=== PATIENT | male | born 1960 | race Caucasian/White ===

== ENCOUNTER 2023-01-10 16:30 | Emergency (ER) | payer BC ==
[2023-01-10] MEDS ORDERED: Ertapenem 1 GM in Sodium Chloride 0.9% 50 ML IV ONE (17:40)
[2023-01-10 18:12] LABS: BASOPHILS PERCENT AUTO 0.3 % (0.3-3.8); EOSINOPHILS ABSOLUTE AUTO 0.3 x10-3/uL (0.0-0.6); EOSINOPHILS PERCENT AUTO 4.3 % (0.1-6.8); HEMATOCRIT 38.2 % (38.3-50.1); LYMPHOCYTES ABSOLUTE AUTO 0.5 x10-3/uL (0.5-4.5); LYMPHOCYTES PERCENT AUTO 6.6 % (15.8-45.3); MEAN CORPUSCULAR VOLUME 88.3 fL (80.8-98.7); MEAN PLATELET VOLUME 8.1 fL (6.7-11.0); MONOCYTES ABSOLUTE AUTO 0.8 x10-3/uL (0.0-1.2); MONOCYTES PERCENT AUTO 11.6 % (5.5-15.2); NEUTROPHILS ABSOLUTE AUTO 5.3 x10-3/uL (1.7-6.9); NEUTROPHILS PERCENT AUTO 77.2 % (40.3-71.8); PLATELET COUNT,PLT 179 x10(3)uL (117-477); RED BLOOD CELL COUNT 4.32 x10(6)uL (3.90-5.90); RED CELL DISTRIBUTION WIDTH 13.1 % (12.4-15.0); WHITE BLOOD CELL COUNT,WBC 6.9 x10-3/uL (3.2-10.1)
[2023-01-10 18:13] LABS: BLOOD UREA NITROGEN,BUN 20 mg/dL (7-18); BUN/CREATININE RATIO 16.7 (9-20); CALCIUM 9.1 mg/dL (8.6-10.2); CARBON DIOXIDE,CO2 27 mmol/L (21-32); CHLORIDE,CL 99 mmol/L (100-110); CREATININE 1.2 mg/dL (0.70-1.30); EST CRCL DRUG DOSING (CG) 70.95 mL/min; ESTIMATED GFR 69 mL/min (>60); GLUCOSE RANDOM 144 mg/dL (80-116); POTASSIUM,K 3.6 mmol/L (3.5-5.3); SODIUM,NA 136 mmol/L (135-145)
[2023-01-10] MEDS ORDERED: Levofloxacin 750 MG Tab PO ONE (18:18)
[2023-01-10 18:19] LABS: A/G RATIO 0.8; ALANINE AMINOTRANSFERASE,ALT 138 U/L (12-36); ALBUMIN 3.2 g/dL (3.2-4.6); ALKALINE PHOSPHATASE 180 IU/L (56-112); ASPARTATE AMNIOTRANSFERASE,AST 51 IU/L (5-25); BILIRUBIN TOTAL 5.6 mg/dL (0.1-1.3); PROTEIN TOTAL,TP 7.3 g/dL (6.0-8.0)
[2023-01-10] MEDS ORDERED: Sodium Chloride 0.9% 1,000 ML IV SCH (18:30)
[2023-01-10 20:38] LABS: BILIRUBIN,URINE SMALL (NEGATIVE); GLUCOSE,URINE NORMAL (NORMAL); KETONES,URINE NEGATIVE (NEGATIVE); LEUKOCYTE ESTERASE,URINE NEGATIVE (NEGATIVE); NITRITE,URINE NEGATIVE (NEGATIVE); OCCULT BLOOD,URINE MODERATE (NEGATIVE); PROTEIN,URINE NEGATIVE (NEGATIVE)
[2023-01-10 20:43] LABS: APPEARANCE,URINE CLEAR (CLEAR); BACTERIA,URINE OCCASIONAL (NS); COLOR,URINE YELLOW (YELLOW); RBC,URINE 0-5 (0-5); SQUAMOUS EPITHELIAL CELLS,UR OCCASIONAL (NS,R,O); UROBILINOGEN,URINE >=12 mg/dL (NEGATIVE); WBC,URINE 0-5 (0-5)
== END 2023-01-10 20:37 | disposition home or self-care (01) ==
LOC: FB.ED 16:30
DX: K80.20 Calculus of gallbladder without cholecystitis without obstruction (principal); R78.81 Bacteremia
CPT/HCPCS: 36415; 80053; 81001; 83605; 85025; 86140; 87040; 96365; 99283; A9270; J1335; J3490; J7030